=== PATIENT | female | born 1950 | race Caucasian/White ===

== ENCOUNTER 2016-08-05 15:07 | Emergency (ER) | payer MEDICARE ==
[~2016-08-05] VITALS: Ht 154.9 cm; Wt 60.0 kg
[2016-08-05 15:09] VITALS: BP 148/83
[2016-08-05] MEDS ORDERED: OXYcodone/APAP 5/325MG TABLET PO ONE (15:30)
[2016-08-05] MEDS ORDERED: DIAZEPAM 5 MG TABLET PO ONE (15:30)
[2016-08-05] MEDS ORDERED: OXYcodone/APAP 5/325MG TABLET ONE (15:49)
[2016-08-05] MEDS ORDERED: DIAZEPAM 5 MG TABLET ONE (15:50)
== END 2016-08-05 16:28 | disposition home or self-care (01) ==
LOC: ED 16:22
DX: S33.5XXA Sprain of ligaments of lumbar spine, initial encounter (principal); M51.36 Other intervertebral disc degeneration, lumbar region; M46.1 Sacroiliitis, not elsewhere classified; X50.9XXA Other and unspecified overexertion or strenuous movements or postures, initial encounter; Y93.89 Activity, other specified; Y92.009 Unspecified place in unspecified non-institutional (private) residence as the place of occurrence of the external cause; Y99.9 Unspecified external cause status
CPT/HCPCS: 72110; 99284; J7512